=== PATIENT | male | born 1960 | race Caucasian/White ===

== ENCOUNTER 2017-01-11 11:39 | Inpatient (IN) | payer OTHER ==
--- NOTE | ~2017-01-11 | CT90 ---
[facility] A Service of [facility] RADIOLOGY TEXT RESULTS PATIENT: JULIAN GREGORY LOCATION: [place] [address]- : 58 UNIT #: [id number] AGE: [address]: Gracia Nguyễn MD SEX: M ORDER DR: [id number] [facility] [address] [place], [place] [address] [id number] I MR#: [id number] Acc #: [id number] NAME: JULIAN GREGORY : 1960 SEX: M STUDY DATE/TIME: 01/12/2017 14:40 UNIT: C3A PCU ROOM: 306 STUDY DESCRIPTION: CT Lower Ext Lt W Cont Attending Physician: Gracia Nguyễn M.D. Ordering Physician: Gracia Nguyễn M.D. Primary Care Physician: Ayaka Fang M.D. MEDICAL IMAGING REPORT This report is preliminary unless electronic signature is present EXAM CT left lower leg with IV contrast. HISTORY Left leg redness and swelling for 1 week after stubbed toe. Cellulitis. TECHNIQUE This CT exam was performed with one or more of the following radiation dose reduction techniques: automatic exposure control, adjustment of mA and/or kV according to patient size, and iterative reconstruction. FINDINGS CT left lower extremity was performed from the distal thigh through the foot, with IV contrast. There is tecd-to-devhzany subcutaneous stranding in the foot and ankle and minimal subcutaneous stranding in the lower leg, suggesting edema or cellulitis. No abscess. No abnormal soft tissue enhancement. No soft tissue mass. No fracture. No bony erosion. IMPRESSION 1. No abscess or soft tissue mass. 2. Ajya-nf-xfybqidv subcutaneous stranding in the lower leg, ankle and foot suggesting edema or cellulitis. Dictated by... Barry Do M.D. THIS IS AN ELECTRONICALLY VERIFIED REPORT Barry Do M.D. at 01/13/2017 10:36 PM DFL/malathi TD: 01/13/2017 02:18 [facility] A Service of [facility] RADIOLOGY TEXT RESULTS PATIENT: JULIAN GREGORY LOCATION: [facility] 470-01 : 58 UNIT #: [id number] AGE: [address]: Gracia Nguyễn MD SEX: M ORDER DR: JOB #: [id number] MEDICAL IMAGING REPORT Page 1 of 1 COPY
--- NOTE | ~2017-01-11 | DS ---
Unit #: [id number] #: [id number] Patient: JULIAN GREGORY [id number] [address] [address] [id number] I MR#: [id number] NAME: JULIAN GREGORY ROOM: [facility] Age: 56 Sex: M Admission Date: 01/11/2017 : 1960 Discharge Date: 01/14/2017 Attending Physician: Ruperto Farrar M.D. Primary Care Physician: Ayaka Fang M.D. DISCHARGE SUMMARY DISCHARGE DIAGNOSES 1. Left lower extremity cellulitis. 2. Chronic obstructive pulmonary disease. 3. Atrial fibrillation. 4. Alcohol abuse. 5. Hyponatremia. 6. Hypokalemia. HOSPITAL COURSE The patient is a 56-year-old man who presented to [facility] emergency department at the behest of his primary care provider secondary to some left leg swelling. In the emergency department the patient was noted to have significant swelling and redness. The patient was noted to be afebrile. The patient was admitted and started on IV clindamycin for his cellulitis. Infectious disease consult was obtained and the patient was changed to vancomycin. Skin tracings were placed to outline the border of the cellulitis. At this time the tracings reveal a significant improvement. As a result, the patient is being discharged home on oral Zyvox for 11 more days. DISCHARGE MEDICATIONS 1. Zestoretic 10/12.5 mg 1 p.o. daily. 2. Clobetasol cream topically q.i.d. to the affected area. 3. Periactin 8 mg p.o. b.i.d. 4. Zyvox 600 mg p.o. b.i.d. times 11 days. FOLLOWUP The patient is to follow up with his primary care provider in 10 days. Dictated by... Ruperto Farrar M.D. CAM/adm TD: 01/14/2017 13:34 JOB #: [id number] Unit #: [id number] #: [id number] Patient: JULIAN GREGORY DISCHARGE SUMMARY Page 1 of 1 X Ruperto Farrar MD DISCHARGE SUMMARY
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
--- NOTE | ~2017-01-11 | US85 ---
[facility] A Service of [facility] RADIOLOGY TEXT RESULTS PATIENT: JULIAN GREGORY LOCATION: A 306-01 : 58 UNIT #: [id number] AGE: [address]: Gracia Nguyễn MD SEX: M ORDER DR: [id number] [facility] [address] [place], [place] [address] [id number] I MR#: [id number] Acc #: [id number] NAME: JULIAN GREGORY : 1960 SEX: M STUDY DATE/TIME: 01/11/2017 14:43 UNIT: A [facility] ROOM: [facility] STUDY DESCRIPTION: US LE Veins Unilat or Ltd Stdy Attending Physician: Cash Saunders M.D. Ordering Physician: Santiago Hutson M.D. Primary Care Physician: Ayaka Fang M.D. MEDICAL IMAGING REPORT This report is preliminary unless electronic signature is present EXAM Left lower extremity venous duplex 01/11/2017 HISTORY Pain and edema left lower extremity for 5 days worsening after walking with erythema for the last 3 days. Evaluate for deep vein thrombosis. TECHNIQUE Venous ultrasound examination of the left lower extremity was performed using grayscale, spectral Doppler and color flow Doppler imaging. FINDINGS The examination is negative. There is no evidence of left lower extremity deep venous thrombus from the groin to the lower calf. Visualized greater saphenous vein is also patent. IMPRESSION Negative examination. No evidence of left lower extremity deep venous thrombosis. Dictated by... Marlo Estrella M.D. THIS IS AN ELECTRONICALLY VERIFIED REPORT Marlo Estrella M.D. at 01/12/2017 2:15 PM BRYAN/jair TD: 01/11/2017 21:52 JOB #: [id number] MEDICAL IMAGING REPORT Page 1 of 1 COPY
--- NOTE | ~2017-01-11 | CR126 ---
[facility] A Service of [facility] RADIOLOGY TEXT RESULTS PATIENT: JULIAN GREGORY LOCATION: [facility] 306-01 : [birth year] UNIT #: [id number] AGE: [address]: MONA SAUNDERS MD SEX: M ORDER DR: [id number] [facility] [address] [facility] [place], [place] [address] [id number] I MR#: [id number] Acc #: [id number] NAME: JULIAN GREGORY : 1960 SEX: M STUDY DATE/TIME: 01/11/2017 13:42 UNIT: A [facility] ROOM: [facility] STUDY DESCRIPTION: CR Foot Complete Min 3 View Lt Attending Physician: Mona Saunders M.D. Ordering Physician: Santiago Hutson M.D. Primary Care Physician: Ayaka Fang M.D. MEDICAL IMAGING REPORT This report is preliminary unless electronic signature is present EXAM Left foot series, 01/11/2017. HISTORY Pain. Redness, swelling, possible infection 7 days duration. Stubbed left great toe. FINDINGS AP, lateral, and oblique radiographs of the left foot are presented. No traumatic fracture or malalignment. Joint spaces are intact with only mild degenerative changes. Extensive vascular calcifications. Soft tissue swelling predominantly along the dorsal aspect of foot without soft tissue defect, subcutaneous air or radiodense foreign body. Dictated by... Go Brownlee M.D. THIS IS AN ELECTRONICALLY VERIFIED REPORT Go Brownlee M.D. at 01/11/2017 9:54 PM JEREMIAH/malathi TD: 01/11/2017 21:32 JOB #: [id number] MEDICAL IMAGING REPORT Page 1 of 1 COPY
[~2017-01-11 11:39] MED LIST: LEVAQUIN PO; MULTI VITAMIN1 EACH PO; NEURONTIN300 MG PO; NO MEDICATIONS; NORVASC PO
[2017-01-11 13:40] LABS: BASOPHIL% 0.3 % (0-2.5); EOSINOPHIL% 0.1 % (0.0-7.0); HEMATOCRIT 36.9 % (38.0-50.0); HEMOGLOBIN 12.5 gm/dL (13.0-16.0); MEAN CELL VOLUME 100.5 FL (83-96); MEAN CORPUSCULAR HEMOGLOBIN 34.1 PG (28-34); MEAN CORPUSCULAR HGB CONC 33.9 g/dL (30-36); MONOCYTE# 1.3 X10e3 (0-1.0); MONOCYTE% 12.8 % (3.0-12.0); NEUTROPHIL# 7.6 X10e3 (1.5-7.1); NEUTROPHIL% 76.8 % (40-75); PLATELET COUNT 172 X10e3 (140-420); RED BLOOD COUNT 3.67 X10e (3.90-5.60); RED CELL DISTRIBUTION WIDTH 15.4 % (11.0-15.5); WHITE BLOOD COUNT 9.9 X10e3 (4.0-10.5)
[2017-01-11 13:50] LABS: DIFF IND NO
[2017-01-11 14:07] LABS: ALBUMIN SERUM 3.1 g/dL (3.5-5.0); BILIRUBIN,TOTAL 1.1 mg/dL (0.2-2.0); BUN/CREATININE RATIO 13.33; CALCIUM SERUM 8.6 mg/dL (8.4-10.2); CREATININE SERUM 0.9 mg/dL (0.6-1.4); GLOM FILT RATE Estimated 94.5 mL/min (>60); POTASSIUM 3.4 mmol/L (3.5-5.1); PROTEIN TOTAL SERUM 7.3 g/dL (6.0-8.3)
[2017-01-11] MEDS ORDERED: PERIACTIN4 M1 PO (17:29)
[2017-01-11] MEDS ORDERED: PATIENT'S PHARMACY (17:29)
[2017-01-11] MEDS ORDERED: ZESTORETIC 10-1 EAC1 PO (17:29)
[2017-01-11] MEDS ORDERED: CLOBETASOL 0.0560 GM TOP (17:29)
[2017-01-12 07:27] LABS: BASOPHIL% 0.1 % (0-2.5); HEMATOCRIT 33.3 % (38.0-50.0); HEMOGLOBIN 11.3 gm/dL (13.0-16.0); LYMPHOCYTE% 13.4 % (17.0-45.0); MEAN CELL VOLUME 100.2 FL (83-96); MEAN PLATELET VOLUME 8.8 FL (6.5-11.5); MONOCYTE# 1.2 X10e3 (0-1.0); MONOCYTE% 16.2 % (3.0-12.0); NEUTROPHIL# 5.4 X10e3 (1.5-7.1); NEUTROPHIL% 70.3 % (40-75); PLATELET COUNT 157 X10e3 (140-420); RED BLOOD COUNT 3.32 X10e (3.90-5.60); RED CELL DISTRIBUTION WIDTH 15.3 % (11.0-15.5); WHITE BLOOD COUNT 7.7 X10e3 (4.0-10.5)
[2017-01-12 07:34] LABS: DIFF IND NO
[2017-01-12 08:55] LABS: BUN/CREATININE RATIO 14.28; CALCIUM SERUM 8.2 mg/dL (8.4-10.2); CREATININE SERUM 0.7 mg/dL (0.6-1.4); GLOM FILT RATE Estimated 104.8 mL/min (>60); POTASSIUM 3.3 mmol/L (3.5-5.1)
[2017-01-13 05:16] LABS: HEMATOCRIT 35.1 % (38.0-50.0); HEMOGLOBIN 11.7 gm/dL (13.0-16.0); MEAN CELL VOLUME 101.8 FL (83-96); MEAN CORPUSCULAR HEMOGLOBIN 33.8 PG (28-34); MEAN CORPUSCULAR HGB CONC 33.2 g/dL (30-36); PLATELET COUNT 200 X10e3 (140-420); RED BLOOD COUNT 3.45 X10e (3.90-5.60); RED CELL DISTRIBUTION WIDTH 15.5 % (11.0-15.5); WHITE BLOOD COUNT 7.9 X10e3 (4.0-10.5)
[2017-01-13 05:59] LABS: BUN/CREATININE RATIO 11.25; CALCIUM SERUM 8.4 mg/dL (8.4-10.2); CREATININE SERUM 0.8 mg/dL (0.6-1.4); GLOM FILT RATE Estimated 99.2 mL/min (>60); POTASSIUM 3.8 mmol/L (3.5-5.1)
[2017-01-14 02:58] LABS: HEMATOCRIT 33.1 % (38.0-50.0); HEMOGLOBIN 11.2 gm/dL (13.0-16.0); MEAN PLATELET VOLUME 8.9 FL (6.5-11.5); RED BLOOD COUNT 3.31 X10e (3.90-5.60); RED CELL DISTRIBUTION WIDTH 15.1 % (11.0-15.5); WHITE BLOOD COUNT 5.5 X10e3 (4.0-10.5)
[2017-01-14 03:23] LABS: CALCIUM SERUM 8.2 mg/dL (8.4-10.2); CREATININE SERUM 0.5 mg/dL (0.6-1.4); GLOM FILT RATE Estimated 120.3 mL/min (>60); POTASSIUM 3.5 mmol/L (3.5-5.1)
[2017-01-14] MEDS ORDERED: CLINDAMYCIN PO (17:38)
== END 2017-01-14 17:00 | disposition home or self-care (01) | DRG 603 ==
LOC: CED 11:39 → C4C 16:00 → CEDOF 16:00 → CED 16:00 → C3A PCU 16:23 → CEDOF 16:23 → CED 16:23 → C3A PCU 16:23 → C4C 01-13 14:33
PROVIDERS: Emergency Medicine; Family Medicine; Internal Medicine
DX: L03.116 Cellulitis of left lower limb (principal); E87.1 Hypo-osmolality and hyponatremia; Z88.0 Allergy status to penicillin; J44.9 Chronic obstructive pulmonary disease, unspecified; I48.91 Unspecified atrial fibrillation; F17.210 Nicotine dependence, cigarettes, uncomplicated; Z87.11 Personal history of peptic ulcer disease; E87.6 Hypokalemia; F10.10 Alcohol abuse, uncomplicated
CPT/HCPCS: 36415; 73630; 73701-LT; 80048; 80053; 82947; 83605; 85025; 85027; 85652; 86140; 87040; 93971; 96360; 99284; J1650; J1940; J3370; J3411; J3475; Q9967